=== PATIENT | female | born 1980 | race African-American/Black ===

== ENCOUNTER 2019-09-05 13:07 | Inpatient (IN) | payer MEDICAID ==
[~2019-09-05] VITALS: Ht 160 cm; Wt 77.1 kg
[2019-09-05] MEDS ORDERED: Morphine Sulfate 4mg/ml Inj (IV USE ONLY) IVP ONE (13:30)
--- NOTE | 2019-09-05 13:45 | Emergency Room Report ---
History of Present Illness General Chief Complaint: Abdominal Pain Source: Patient Present Illness HPI 39-year-old female recent embolization August 25 presents with lower abdominal pain sharp in nature intermittent no known aggravating relieving factors severity is severe no nausea no vomiting patient presents for evaluation and admission into the hospital Allergies: Coded Allergies: No Known Allergies (Unverified , 09/05/19) Patient History Past Medical History: see triage record Last Menstrual Period: 08/05/2019 Now: No Reviewed Nursing Documentation: PMH: Agreed; PSxH: Agreed Nursing Documentation-PMH Past Medical History: No Stated History Review of Systems All Other Systems: negative except mentioned in HPI Physical Exam Vital Signs Date Time Temp Pulse Resp B/P (MAP) Pulse Ox O2 Delivery O2 Flow Rate FiO2 09/05/19 13:15 98.2 73 18 113/67 (82) 98 Room Air Sp02 EP Interpretation: reviewed, normal General Appearance: well appearing, no apparent distress, alert Head: normocephalic, atraumatic Eyes: bilateral eye PERRL, bilateral eye EOMI ENT: uvula midline, moist mucus membranes Neck: supple, thyroid normal, supple/symm/no masses Respiratory: lungs clear, no respiratory distress, no retraction, no accessory muscle use Cardiovascular #1: normal peripheral pulses, regular rate, rhythm, no edema, no gallop, no murmur Gastrointestinal: soft, no guarding, no rebound, tenderness - Mild tenderness lower abdominal Musculoskeletal: normal inspection Neurologic: alert, oriented x3 Psychiatric: mood/affect normal Skin: no rash, warm/dry Medical Decision Making Diagnostic Impression: Primary Impression: Intractable abdominal pain Additional Impression: Postoperative pain ER Course 39-year-old female presents with abdominal pain differential diagnosis includes obstruction, postsurgical pain Plan for admission to the hospital under Dr. Velasquez Patient remained stable Laboratory Tests Test 09/05/19 13:47 09/05/19 14:28 White Blood Count 9.7 K/UL (4.8-10.8) Red Blood Count 4.42 M/UL (4.20-5.40) Hemoglobin 11.5 G/DL (12.0-16.0) L Hematocrit 34.5 % (37.0-47.0) L Mean Corpuscular Volume 78 FL (80-99) L Mean Corpuscular Hemoglobin 26.1 PG (27.0-31.0) L Mean Corpuscular Hemoglobin Concent 33.5 G/DL (32.0-36.0) Red Cell Distribution Width 14.0 % (11.6-14.8) Platelet Count 355 K/UL (150-450) Mean Platelet Volume 6.8 FL (6.5-10.1) Neutrophils (%) (Auto) 69.6 % (45.0-75.0) Lymphocytes (%) (Auto) 21.7 % (20.0-45.0) Monocytes (%) (Auto) 6.6 % (1.0-10.0) Eosinophils (%) (Auto) 1.6 % (0.0-3.0) Basophils (%) (Auto) 0.6 % (0.0-2.0) Sodium Level 139 MMOL/L (136-145) Potassium Level 3.9 MMOL/L (3.5-5.1) Chloride Level 102 MMOL/L (98-107) Carbon Dioxide Level 28 MMOL/L (21-32) Anion Gap 9 mmol/L (5-15) Blood Urea Nitrogen 7 mg/dL (7-18) Creatinine 0.8 MG/DL (0.55-1.30) Estimate Glomerular Filtration Rate > 60 mL/min (>60) Glucose Level 92 MG/DL (74-106) Calcium Level 9.5 MG/DL (8.5-10.1) Total Bilirubin 0.3 MG/DL (0.2-1.0) Aspartate Amino Transferase (AST) 14 U/L (15-37) L Alanine Aminotransferase (ALT) 18 U/L (12-78) Alkaline Phosphatase 96 U/L (46-116) Total Protein 8.4 G/DL (6.4-8.2) H Albumin 3.9 G/DL (3.4-5.0) Globulin 4.5 g/dL Albumin/Globulin Ratio 0.9 (1.0-2.7) L Lipase 100 U/L (73-393) Human Chorionic Gonadotropin, Quant 1 mIU/mL (1-6) Urine Color Yellow Urine Appearance Clear Urine pH 5 (4.5-8.0) Urine Specific [facility] 1.015 (1.005-1.035) Urine Protein Negative (NEGATIVE) Urine Glucose (UA) Negative (NEGATIVE) Urine Ketones 1+ (NEGATIVE) H Urine Blood 2+ (NEGATIVE) H Urine Nitrite Negative (NEGATIVE) Urine Bilirubin Negative (NEGATIVE) Urine Urobilinogen Normal MG/DL (0.0-1.0) Urine Leukocyte Esterase 1+ (NEGATIVE) H Urine RBC Pending Urine WBC Pending Urine Squamous Epithelial Cells Pending Urine Bacteria Pending Last Vital Signs Date Time Temp Pulse Resp B/P (MAP) Pulse Ox O2 Delivery O2 Flow Rate FiO2 09/05/19 13:15 98.2 73 18 113/67 (82) 98 Room Air Disposition: ADMITTED INPATIENT Condition: Stable Jh Castellanos MD Sep 05, 2019 13:45
[2019-09-05 14:00] VITALS: BP 112/71
--- NOTE | 2019-09-05 14:19 | NUR ---
ED Nurse Note: Pt walked into ED w/ c/o abdominal pain / since 08/25. Pt is alert and orientedx4, ambulatory. Pt is set up on monitor. Pt has slight nausea. Dr Castellanos has seen patient. Pt mom is at bedside and pt lying in bed.
[2019-09-05 14:22] LABS: ANION GAP 9 mmol/L (5-15); BLOOD UREA NITROGEN 7 mg/dL (7-18); CALCIUM 9.5 MG/DL (8.5-10.1); CARBON DIOXIDE 28 MMOL/L (21-32); CHLORIDE 102 MMOL/L (98-107); CREATININE 0.8 MG/DL (0.55-1.30); POTASSIUM 3.9 MMOL/L (3.5-5.1); SODIUM 139 MMOL/L (136-145)
[2019-09-05 14:26] LABS: ALANINE AMINOTRANSFERASE 18 U/L (12-78); ALBUMIN 3.9 G/DL (3.4-5.0); ALBUMIN/GLOBULIN RATIO 0.9 (1.0-2.7); ALKALINE PHOSPHATASE 96 U/L (46-116); ASPARTATE AMINO TRANSFERASE 14 U/L (15-37); BILIRUBIN,TOTAL 0.3 MG/DL (0.2-1.0)
--- NOTE | 2019-09-05 14:29 | NUR ---
ED Nurse Note: Dr Castellanos notified that pt IV has been attempted by 4 nurses and unable to get IV. DR Castellanos will attempt EJ.
[2019-09-05 14:41] LABS: BASOPHILS % (AUTO) 0.6 % (0.0-2.0); EOSINOPHILS % (AUTO) 1.6 % (0.0-3.0); HEMATOCRIT 34.5 % (37.0-47.0); HEMOGLOBIN 11.5 G/DL (12.0-16.0); LYMPHOCYTES % (AUTO) 21.7 % (20.0-45.0); MEAN CORPUSCULAR VOLUME 78 FL (80-99); MONOCYTES % (AUTO) 6.6 % (1.0-10.0); NEUTROPHILS % (AUTO) 69.6 % (45.0-75.0); PLATELET COUNT 355 K/UL (150-450); RED BLOOD COUNT 4.42 M/UL (4.20-5.40); WHITE BLOOD COUNT 9.7 K/UL (4.8-10.8)
[2019-09-05 14:52] LABS: APPEARANCE,URINE CLEAR; BILIRUBIN, URINE NEGATIVE (NEGATIVE); GLUCOSE, URINE (UA) NEGATIVE (NEGATIVE); KETONES,URINE 1+ (NEGATIVE); LEUKOCYTE ESTERASE ,URINE 1+ (NEGATIVE); NITRITE,URINE NEGATIVE (NEGATIVE); PH,URINE 5 (4.5-8.0); PROTEIN,URINE NEGATIVE (NEGATIVE); UROBILINOGEN,URINE NORMAL MG/DL (0.0-1.0)
[2019-09-05] MEDS ORDERED: TRAMADOL HCL50 MG ORAL (14:52)
[2019-09-05] MEDS ORDERED: NITROFURANTOIN100 M2 ORAL (14:52)
[2019-09-05] MEDS ORDERED: MOVANTIK25 MG PO (14:52)
[2019-09-05] MEDS ORDERED: ZOFRAN4 M3 ORAL (14:52)
[2019-09-05] MEDS ORDERED: OXYCODONE-ACET1 EAC5 ORAL (14:52)
[2019-09-05 14:53] LABS: COLOR,URINE YELLOW
[2019-09-05 15:30] VITALS: BP 130/108
--- NOTE | 2019-09-05 15:30 | NUR ---
NURSE NOTES: ADMITTED A 39YR OLD FEMALE WITH DX OF INTRACTABLE ABDOMINAL PAIN. AWAKE/ALERT. ADM CARE DONE SEE ADM ASSESSMENT.
--- NOTE | 2019-09-05 15:35 | NUR ---
ED Nurse Note: Report given to Liz LI.
--- NOTE | 2019-09-05 15:40 | NUR ---
ED Nurse Note: Pt taken to [facility] via [facility]. Pt took all belongings. Pt is alert and orientedx4, amb.
--- NOTE | 2019-09-05 16:47 | General Surgery Progress Note ---
General Surgery-Progress Note Subjective Day of Surgery: august 25 Reason for Consult post procedure pain, uncontrolled Procedure Performed uterine artery embolization Symptoms: pain same, tolerating diet, BM Objective Last 24 Hour Vital Signs Date Time Temp Pulse Resp B/P (MAP) Pulse Ox O2 Delivery O2 Flow Rate FiO2 09/05/19 15:40 98.2 86 18 118/76 97 Room Air 09/05/19 15:40 98.2 09/05/19 15:30 Room Air 09/05/19 14:00 98.2 82 18 112/71 99 Room Air 09/05/19 14:00 78 18 Room Air 99 09/05/19 13:15 98.2 73 18 113/67 (82) 98 Room Air Dressing: dry Wound: clean, dry, intact Drains: none Cardiovascular: RSR Respiratory: clear Abdomen: soft, flat, scaphoid, tenderness, decreased bowel sounds Extremities: no edema, no tenderness, no cyanosis Laboratory Tests Test 09/05/19 13:47 09/05/19 14:28 White Blood Count 9.7 K/UL (4.8-10.8) Red Blood Count 4.42 M/UL (4.20-5.40) Hemoglobin 11.5 G/DL (12.0-16.0) L Hematocrit 34.5 % (37.0-47.0) L Mean Corpuscular Volume 78 FL (80-99) L Mean Corpuscular Hemoglobin 26.1 PG (27.0-31.0) L Mean Corpuscular Hemoglobin Concent 33.5 G/DL (32.0-36.0) Red Cell Distribution Width 14.0 % (11.6-14.8) Platelet Count 355 K/UL (150-450) Mean Platelet Volume 6.8 FL (6.5-10.1) Neutrophils (%) (Auto) 69.6 % (45.0-75.0) Lymphocytes (%) (Auto) 21.7 % (20.0-45.0) Monocytes (%) (Auto) 6.6 % (1.0-10.0) Eosinophils (%) (Auto) 1.6 % (0.0-3.0) Basophils (%) (Auto) 0.6 % (0.0-2.0) Sodium Level 139 MMOL/L (136-145) Potassium Level 3.9 MMOL/L (3.5-5.1) Chloride Level 102 MMOL/L (98-107) Carbon Dioxide Level 28 MMOL/L (21-32) Anion Gap 9 mmol/L (5-15) Blood Urea Nitrogen 7 mg/dL (7-18) Creatinine 0.8 MG/DL (0.55-1.30) Estimat Glomerular Filtration Rate > 60 mL/min (>60) Glucose Level 92 MG/DL (74-106) Calcium Level 9.5 MG/DL (8.5-10.1) Total Bilirubin 0.3 MG/DL (0.2-1.0) Aspartate Amino Transf (AST/SGOT) 14 U/L (15-37) L Alanine Aminotransferase (ALT/SGPT) 18 U/L (12-78) Alkaline Phosphatase 96 U/L (46-116) Total Protein 8.4 G/DL (6.4-8.2) H Albumin 3.9 G/DL (3.4-5.0) Globulin 4.5 g/dL Albumin/Globulin Ratio 0.9 (1.0-2.7) L Lipase 100 U/L (73-393) Human Chorionic Gonadotropin, Quant 1 mIU/mL (1-6) Urine Color Yellow Urine Appearance Clear Urine pH 5 (4.5-8.0) Urine Specific [place] 1.015 (1.005-1.035) Urine Protein Negative (NEGATIVE) Urine Glucose (UA) Negative (NEGATIVE) Urine Ketones 1+ (NEGATIVE) H Urine Blood 2+ (NEGATIVE) H Urine Nitrite Negative (NEGATIVE) Urine Bilirubin Negative (NEGATIVE) Urine Urobilinogen Normal MG/DL (0.0-1.0) Urine Leukocyte Esterase 1+ (NEGATIVE) H Urine RBC 2-4 /HPF (0 - 2) H Urine WBC 10-15 /HPF (0 - 2) H Urine Squamous Epithelial Cells Moderate /LPF (NONE/OCC) H Urine Bacteria Moderate /HPF (NONE) H Additional Comments seen yesterday in [facility] ED, normal CT scan abdomen and pelvis Assessment Additional Comments in [facility] KUB, such stool in colon, otherwise normal Plan Additional Comments pain control, IM and GI consult Logan Velasquez MD Sep 05, 2019 16:47
[2019-09-05] MEDS ORDERED: HYDROmorphone 1mg/ml Carpuject IVP PRN (17:00)
[2019-09-05] MEDS ORDERED: HYDROcodone/Acetamin 5/325 tab ORAL PRN (17:00)
[2019-09-05] MEDS ORDERED: Miralax 17gm pkt ORAL PRN (17:00)
[2019-09-05] MEDS ORDERED: Milk of Magnesia 30ml Ud ORAL PRN (17:00)
--- NOTE | 2019-09-05 17:00 | Diagnostic Imaging Report ---
Indication: Abdominal pain Technique: Supine view of the abdomen Comparison: none Findings: Bowel gas pattern is unremarkable. No unusual masses or calcifications. There is a well-circumscribed lucency in the pelvis which is unusually uniform in shape, could indicate a lucent foreign body Impression: No acute process Lucency in the pelvis raises possibility of foreign body. Dr. Nicholson notified
[2019-09-05] MEDS: Docusate 250mg cap ORAL SCH (18:26)
[2019-09-05] MEDS: Dextrose 5%/Lactated Ringer's 1,000 ML IV SCH (18:47)
--- NOTE | 2019-09-05 19:00 | NUR ---
NURSE NOTES: AWAKE/ALERT. IN NO DISTRESS.
[2019-09-05] MEDS: Lactulose 20gm/30ml UDC ORAL SCH (19:07)
--- NOTE | 2019-09-05 19:50 | NUR ---
HAND-OFF: Report given to CAROLE LI.
[2019-09-05] MEDS ORDERED: Relistor 12mg/0.6ml Vial SUBQ ONE (20:00)
--- NOTE | 2019-09-05 20:17 | NUR ---
NURSES NOTE: Pt in bed, A/OX4, no outward s/s of distress noted. Breathing pattern is even and unlabored on RA. Iv L ac intact, flushing without incident. All due medications will be given. Bed at lowest level, call light within reach. Pt will continue to be monitored.
[2019-09-05] MEDS: ceFAZolin sod 1 GM in D5W 55 ML IVPB SCH (22:49)
[2019-09-06] MEDS: Dextrose 5%/Lactated Ringer's 1,000 ML IV SCH ×3 (05:35→17:48)
[2019-09-06] MEDS: ceFAZolin sod 1 GM in D5W 55 ML IVPB SCH ×3 (05:35→22:07)
[2019-09-06 05:56] LABS: BASOPHILS % (AUTO) 1.3 % (0.0-2.0); EOSINOPHILS % (AUTO) 1.8 % (0.0-3.0); HEMATOCRIT 30.7 % (37.0-47.0); HEMOGLOBIN 9.9 G/DL (12.0-16.0); LYMPHOCYTES % (AUTO) 21.6 % (20.0-45.0); MEAN CORPUSCULAR VOLUME 79 FL (80-99); MONOCYTES % (AUTO) 8.6 % (1.0-10.0); NEUTROPHILS % (AUTO) 66.7 % (45.0-75.0); PLATELET COUNT 303 K/UL (150-450); RED BLOOD COUNT 3.89 M/UL (4.20-5.40); RED CELL DISTRIBUTION WIDTH 13.7 % (11.6-14.8); WHITE BLOOD COUNT 8.1 K/UL (4.8-10.8)
--- NOTE | 2019-09-06 07:22 | NUR ---
PENNYND OFF: Report given to JEN Hill. Patient in stable condition. Addendum: 09/06/19 at 0724 by Susan Mondragon RN HAND- OFF:
--- NOTE | 2019-09-06 08:05 | NUR ---
NURSE NOTES: AWAKE/ALERT. NO C/O PAIN. IN NO DISTRESS.
[2019-09-06] MEDS: Lactulose 20gm/30ml UDC ORAL SCH ×3 (09:21→17:50)
[2019-09-06] MEDS: Docusate 250mg cap ORAL SCH ×2 (09:21→17:50)
--- NOTE | 2019-09-06 09:51 | History & Physical ---
History and Physical History & Physicial DICT # [id number] Samir Escalante MD Sep 06, 2019 09:51
[2019-09-06] MEDS ORDERED: Iron Sucrose 100 MG in NS 55 ML IV SCH (10:00)
--- NOTE | 2019-09-06 10:23 | General Progress Note ---
Assessment/Plan Problem List: (1) Intractable abdominal pain ICD Codes: R10.9 - Unspecified abdominal pain SNOMED: 89885231 (2) Postoperative pain ICD Codes: G89.18 - Other acute postprocedural pain SNOMED: 534601367 (3) Constipation ICD Codes: K59.00 - Constipation, unspecified SNOMED: 80793351 Assessment/Plan: bowel regimen -colace -miralax -lactulose -enema -and one dose of relistor one more enema for today pain management fu labs Subjective ROS Limited/Unobtainable: Yes Allergies: Coded Allergies: No Known Allergies (Unverified , 09/05/19) Objective Last 24 Hour Vital Signs Date Time Temp Pulse Resp B/P (MAP) Pulse Ox O2 Delivery O2 Flow Rate FiO2 09/05/19 21:00 Room Air 09/05/19 15:40 98.2 86 18 118/76 97 Room Air 09/05/19 15:40 98.2 09/05/19 15:30 99.0 100 20 130/108 (115) 100 09/05/19 15:30 Room Air 09/05/19 14:00 98.2 82 18 112/71 99 Room Air 09/05/19 14:00 78 18 Room Air 99 09/05/19 13:15 98.2 73 18 113/67 (82) 98 Room Air Intake and Output 09/05/19 09/06/19 19:00 07:00 Intake Total 450 ml 460 ml Balance 450 ml 460 ml Intake Oral 450 ml 360 ml IV Total 100 ml # Voids 1 2 Laboratory Tests 09/05/19 13:47: White Blood Count 9.7, Red Blood Count 4.42, Hemoglobin 11.5L, Hematocrit 34.5L , Mean Corpuscular Volume 78L, Mean Corpuscular Hemoglobin 26.1L, Mean Corpuscular Hemoglobin Concent 33.5, Red Cell Distribution Width 14.0, Platelet Count 355, Mean Platelet Volume 6.8, Neutrophils (%) (Auto) 69.6, Lymphocytes (% ) (Auto) 21.7, Monocytes (%) (Auto) 6.6, Eosinophils (%) (Auto) 1.6, Basophils ( %) (Auto) 0.6, Sodium Level 139, Potassium Level 3.9, Chloride Level 102, Carbon Dioxide Level 28, Anion Gap 9, Blood Urea Nitrogen 7, Creatinine 0.8, Estimat Glomerular Filtration Rate > 60, Glucose Level 92, Calcium Level 9.5, Total Bilirubin 0.3, Aspartate Amino Transf (AST/SGOT) 14L, Alanine Aminotransferase (ALT/SGPT) 18, Alkaline Phosphatase 96, Total Protein 8.4H, Albumin 3.9, Globulin 4.5, Albumin/Globulin Ratio 0.9L, Lipase 100, Human Chorionic Gonadotropin, Quant 1 09/05/19 14:28: Urine Color Yellow, Urine Appearance Clear, Urine pH 5, Urine Specific [place] 1.015, Urine Protein Negative, Urine Glucose (UA) Negative, Urine Ketones 1+H, Urine Blood 2+H, Urine Nitrite Negative, Urine Bilirubin Negative, Urine Urobilinogen Normal, Urine Leukocyte Esterase 1+H, Urine RBC 2-4H, Urine WBC 10- 15H, Urine Squamous Epithelial Cells ModerateH, Urine Bacteria ModerateH 09/06/19 05:10: White Blood Count 8.1, Red Blood Count 3.89L, Hemoglobin 9.9L, Hematocrit 30.7L , Mean Corpuscular Volume 79L, Mean Corpuscular Hemoglobin 25.4L, Mean Corpuscular Hemoglobin Concent 32.2, Red Cell Distribution Width 13.7, Platelet Count 303, Mean Platelet Volume 7.0, Neutrophils (%) (Auto) 66.7, Lymphocytes (% ) (Auto) 21.6, Monocytes (%) (Auto) 8.6, Eosinophils (%) (Auto) 1.8, Basophils ( %) (Auto) 1.3 Height (Feet): 5 Height (Inches): 3.00 Weight (Pounds): 170 General Appearance: alert EENT: normal ENT inspection Neck: supple Cardiovascular: normal rate Respiratory/Chest: decreased breath sounds Abdomen: normal bowel sounds, hypoactive bowel sounds, tender Extremities: non-tender Alexander Willett MD Sep 06, 2019 10:23
--- NOTE | 2019-09-06 10:45 | NUR ---
NURSE NOTES: OFFERED TWE BUT REFUSED. STATES JUST WENT TO THE BATHROOM AND HAD BM.
--- NOTE | 2019-09-06 11:41 | NUR ---
*-* INSURANCE *-* ALL AVAILABLE CLINICALS HAVE BEEN FAXED TO: [employer]#[id number] CM: ALBER #[phone] EXT [phone] FAX# [phone] REVIEWS/CLINICALS
[2019-09-06 12:00] VITALS: BP 113/66
[2019-09-06] MEDS ORDERED: traMADol 50mg tab ORAL PRN (12:15)
--- NOTE | 2019-09-06 12:58 | Diagnostic Imaging Report ---
Indication: Leg pain Technique: Grayscale and duplex images of the bilateral lower extremity veins Comparison: Findings: Bilaterally, grayscale and duplex images demonstrate no evidence of intraluminal thrombus. Normal phasic Doppler waveforms, demonstrating normal augmentation response and no evidence of valvular insufficiency. Greater saphenous vein(s) and tibial veins are patent. Normal compressibility. Note, however, that the right groin is bandage and therefore the common femoral vein cannot be visualized Impression: Limited exam, as described, with nonvisualization of the right common femoral vein. Otherwise negative for evidence of lower extremity deep venous thrombosis bilaterally
--- NOTE | 2019-09-06 13:52 | Diagnostic Imaging Report ---
Indication: Upper extremity arm pain Technique: Grayscale and duplex images of the bilateral upper extremity veins Comparison: Findings: Bilaterally, grayscale and duplex images demonstrate no evidence of intraluminal thrombus. Normal phasic Doppler waveforms, no evidence of valvular insufficiency. Bilateral internal jugular and subclavian veins are patent. Normal compressibility. Impression: Negative for evidence of upper extremity deep venous thrombosis bilaterally
[2019-09-06] MEDS: Relistor 12mg/0.6ml Vial SUBQ SCH (14:00)
--- NOTE | 2019-09-06 14:40 | General Surgery Progress Note ---
General Surgery-Progress Note Subjective Procedure Performed uterine artery embolization Symptoms: tolerating diet, voiding well, passing flatus, BM, pain decreased Objective Last 24 Hour Vital Signs Date Time Temp Pulse Resp B/P (MAP) Pulse Ox O2 Delivery O2 Flow Rate FiO2 09/06/19 12:00 98.4 63 20 113/66 (82) 100 09/06/19 09:00 Room Air 09/05/19 21:00 Room Air 09/05/19 15:40 98.2 86 18 118/76 97 Room Air 09/05/19 15:40 98.2 09/05/19 15:30 99.0 100 20 130/108 (115) 100 09/05/19 15:30 Room Air I&O Intake and Output 09/05/19 09/06/19 19:00 07:00 Intake Total 450 ml 460 ml Balance 450 ml 460 ml Intake Oral 450 ml 360 ml IV Total 100 ml # Voids 1 2 Dressing: dry Wound: clean Drains: none Cardiovascular: RSR Respiratory: clear Abdomen: soft, flat, scaphoid, tenderness, present bowel sounds Extremities: no edema, no tenderness, no cyanosis Laboratory Tests Test 09/06/19 05:10 White Blood Count 8.1 K/UL (4.8-10.8) Red Blood Count 3.89 M/UL (4.20-5.40) L Hemoglobin 9.9 G/DL (12.0-16.0) L Hematocrit 30.7 % (37.0-47.0) L Mean Corpuscular Volume 79 FL (80-99) L Mean Corpuscular Hemoglobin 25.4 PG (27.0-31.0) L Mean Corpuscular Hemoglobin Concent 32.2 G/DL (32.0-36.0) Red Cell Distribution Width 13.7 % (11.6-14.8) Platelet Count 303 K/UL (150-450) Mean Platelet Volume 7.0 FL (6.5-10.1) Neutrophils (%) (Auto) 66.7 % (45.0-75.0) Lymphocytes (%) (Auto) 21.6 % (20.0-45.0) Monocytes (%) (Auto) 8.6 % (1.0-10.0) Eosinophils (%) (Auto) 1.8 % (0.0-3.0) Basophils (%) (Auto) 1.3 % (0.0-2.0) Additional Comments doppler of legs negative Assessment Additional Comments minimal pain control needed. Plan Additional Comments attempt oral pain medication. possible am discharge Logan Velasquez MD Sep 06, 2019 14:40
--- NOTE | 2019-09-06 14:41 | NUR ---
CASE MANAGEMENT: INITIAL REVIEW 39YR OLD FROM HOME CC: ABD PAIN HX: S/P UTERINE ARTERY EMBOLIZATION SI:INTRACTABLE ABD PAIN . POSTOPERATIVE PAIN 98.2 73 18 113/67 98% ON RA IS:IV NS BOLUS X1 IV ZOFRAN X1 IV PEPCID X1 IV MORPHINE SULFATE X1 ABD [id number] in the pelvis raises possibility of foreign body VENOUS DUPL ILAN LEG - Limited exam, as described, with nonvisualization of the right common femoral vein. Otherwise negative for evidence of lower extremity deep venous thrombosis bilaterally VENOUS DUPL UPPER EXT ILAN- NEGATIVE \: 3E MED SURG UNIT DCP: HOME WHEN STABLE CASE MANAGEMENT: REVIEW 09/06/19 SI:INTRACTABLE ABD PAIN . POSTOPERATIVE PAIN 98.4 63 20 113/66 100% ON RA H/H 9.9/30.7 IS:IV D5/LR @100ML/HR IV CEFAZOLIN TID IV VENOFER QHS X5 BAGS MACROBID PO BID KETOCONAZOLE TP QD LACTULOSE PO TID RELISTOR SQ X1 \: 3E MED SURG UNIT DCP: HOME WHEN STABLE PLAN: BOWEL REGIMEN PAIN MANAGEMENT TOLERATING DIET VOID WELL PASS FLATUS PAIN DECREASE
[2019-09-06] MEDS ORDERED: Tubing IV Secondary IV ONE (15:09)
[2019-09-06 16:00] VITALS: BP 120/69
--- NOTE | 2019-09-06 19:00 | NUR ---
NURSE NOTES: AWAKE/ALERT. IN DISTRESS. NO PAIN.
--- NOTE | 2019-09-06 19:38 | NUR ---
NURSES NOTE: Met pt in bed, A/OX4, able to relay needs. Denies pain currently. No outward s/s of distress noted. Breathing is even and unlabored on RA. L AC IV intact, infusing IVF as ordered. All due meds will be given. BM X3 today. Bed at lowest level. Call light within reach. Pt will continue to be monitored.
--- NOTE | 2019-09-06 19:54 | NUR ---
HAND-OFF: Report given to Josue DORMAN RN.
[2019-09-06 20:00] VITALS: BP 109/61
--- NOTE | 2019-09-06 20:15 | History and Physical Report ---
DATE OF ADMISSION: 09/05/2019 CHIEF COMPLAINT: Abdominal pain. HISTORY OF PRESENT ILLNESS: The patient is a 39-year-old female, G 1, P 1, with a history of uterine fibroids, status post uterine fibroid embolization by Dr. Velasquez at [facility] on August 25 with postoperative UTI and sepsis per the patient, now presenting for evaluation of abdominal pain. She has left lower quadrant abdominal pain, which she describes as her postoperative pain, but was not controlled on the oral regimen at home. She was seen and evaluated by Dr. Velasquez. KUB in the ER showed stool in the colon, but was otherwise unremarkable. She was seen at [facility] one day prior and had a normal CT scan of the abdomen and pelvis. Her only complaint is a left lower quadrant pain. She cannot identify any alleviating or aggravating factors. No nausea, vomiting, diarrhea, or constipation. She did have dysuria, which improved with antibiotics. No urgency, frequency, or hesitancy. No hemoptysis, melena, bright red blood per rectum or hematuria. PAST MEDICAL HISTORY: Uterine fibroids. PAST SURGICAL HISTORY: 1. . 2. Uterine fibroid embolization, 08/25/2019. ALLERGIES: No known drug allergies. MEDICATIONS: Prior to admission medications, Movantik 25 mg p.o. daily, nitrofurantoin 100 mg p.o. b.i.d., Zofran 4 mg p.o. q.6 h. p.r.n., oxycodone/acetaminophen one tablet p.o. q.4 h. p.r.n., and tramadol 50 mg p.o. q.6 h. p.r.n. 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 She has one child. No tobacco, alcohol, or drug use. FAMILY HISTORY: Noncontributory. REVIEW OF SYSTEMS: Negative other than history of present illness. PHYSICAL EXAMINATION: VITAL SIGNS: Temperature 98.2, pulse 86, blood pressure 118/76, saturating 97% in room air. GENERAL: She is a well-developed and well-nourished female, in no acute distress. Awake, alert, and oriented x3. HEENT: Normocephalic and atraumatic. Oropharynx is clear with moist mucous membranes. NECK: Supple without lymphadenopathy or JVD. CHEST: Clear to auscultation bilaterally without wheezing, rales, or rhonchi. HEART: Regular rate and rhythm. No murmurs, rubs, or gallops. ABDOMEN: Soft, nontender, and nondistended. EXTREMITIES: No cyanosis, clubbing, or edema. ANCILLARY DATA: White count 8.1, hemoglobin 9.9, and platelet count 303. Sodium 139, potassium 3.9, chloride 102, bicarbonate 28, BUN 7, creatinine 0.8, glucose 92, calcium 9.5. Total bilirubin 0.3, AST 14, ALT 18, alkaline phosphatase 96, total protein 8.4, albumin 3.9, globulin 4.5, lipase 100. Beta hCG negative. Urinalysis, 1+ ketones, 2+ blood, negative nitrites, negative urobilinogen, 1+ leukocyte esterase, 10 to 15 white blood cells, moderate bacteria, and moderate squames. Urine culture, no growth. KUB from 09/05/2019 shows no active process. Per report [facility] CT scan one day earlier was unremarkable. ASSESSMENT: The patient is a 39-year-old female with a history of uterine fibroids, status post uterine fibroid embolization 08/25/[address] Velasquez, now presenting with intractable postoperative pain. PROBLEM LIST: 1. Postop pain. 2. Uterine fibroids, status post uterine fibroid embolization, 08/25/[address] Velasquez at [facility]. 3. Postoperative urinary tract infection. 4. Constipation. 5. Anemia. TREATMENT PLAN: 1. Pain control/supportive care. 2. We will attempt to transition to p.o. pain regimen. 3. Incentive spirometry. 4. Bowel regimen. 5. Maintenance IV fluids. 6. Clear liquid diet, advance per Dr. Velasquez. 7. Follow up Dr. Velasquez' recommendations. 8. GI evaluation is pending as well. 9. The patient is Full Code. Samir Escalante M.D. DR: JUDE JOB#: [id number] CC:
[2019-09-07] VITALS: BP 103/42
[2019-09-07 04:00] VITALS: BP 107/68
[2019-09-07] MEDS: Dextrose 5%/Lactated Ringer's 1,000 ML IV SCH ×2 (05:05→09:39)
[2019-09-07] MEDS: ceFAZolin sod 1 GM in D5W 55 ML IVPB SCH ×2 (05:05→14:00)
--- NOTE | 2019-09-07 07:11 | NUR ---
HAND OFF: Report given to JEN Alanis/ JEN Roth. Pt in stable condition.
--- NOTE | 2019-09-07 07:30 | NUR ---
NURSE NOTES: Received report from Susan LI. Patient is awake and oriented, no acute distress noted, reporting no pain at this time. IVF running per order through [facility] IV, IV intact, patent. Patient is having breakfast and tolerating well. Patient stated she is ready to be discharge today, will follow up with MD. Side rails upx2, bed low and locked, call light within reach.
[2019-09-07 08:00] VITALS: BP 109/71
[2019-09-07] MEDS ORDERED: Iron Sucrose 100 MG in NS 55 ML IVPB ONE (08:15)
--- NOTE | 2019-09-07 08:15 | NUR ---
NURSE NOTES: Received call from Dr. Velasquez. gave order for one time dose of Venofer and STAT labs. Orders read back and entered. Called lab and informed of STAT lab orders.
[2019-09-07 08:50] LABS: BASOPHILS % (AUTO) 0.6 % (0.0-2.0); EOSINOPHILS % (AUTO) 2.1 % (0.0-3.0); HEMATOCRIT 31.5 % (37.0-47.0); HEMOGLOBIN 10.3 G/DL (12.0-16.0); LYMPHOCYTES % (AUTO) 19.8 % (20.0-45.0); MEAN CORPUSCULAR VOLUME 78 FL (80-99); MONOCYTES % (AUTO) 5.9 % (1.0-10.0); NEUTROPHILS % (AUTO) 71.6 % (45.0-75.0); PLATELET COUNT 301 K/UL (150-450); RED BLOOD COUNT 4.02 M/UL (4.20-5.40); RED CELL DISTRIBUTION WIDTH 13.8 % (11.6-14.8); WHITE BLOOD COUNT 8.3 K/UL (4.8-10.8)
[2019-09-07 08:52] LABS: ANION GAP 10 mmol/L (5-15); BLOOD UREA NITROGEN 6 mg/dL (7-18); CALCIUM 9.1 MG/DL (8.5-10.1); CARBON DIOXIDE 29 MMOL/L (21-32); CHLORIDE 105 MMOL/L (98-107); CREATININE 0.7 MG/DL (0.55-1.30); POTASSIUM 3.5 MMOL/L (3.5-5.1); SODIUM 144 MMOL/L (136-145)
[2019-09-07 09:00] LABS: ALANINE AMINOTRANSFERASE 15 U/L (12-78); ALBUMIN 3.1 G/DL (3.4-5.0); ALBUMIN/GLOBULIN RATIO 0.8 (1.0-2.7); ALKALINE PHOSPHATASE 81 U/L (46-116); ASPARTATE AMINO TRANSFERASE 12 U/L (15-37); BILIRUBIN,TOTAL 0.2 MG/DL (0.2-1.0)
[2019-09-07] MEDS: Docusate 250mg cap ORAL SCH (09:00)
[2019-09-07] MEDS ORDERED: Iron Sucrose 100 MG in NS 55 ML IV SCH (09:00)
[2019-09-07] MEDS: Lactulose 20gm/30ml UDC ORAL SCH ×2 (09:00→13:00)
--- NOTE | 2019-09-07 11:59 | General Progress Note ---
Assessment/Plan Problem List: (1) Intractable abdominal pain ICD Codes: R10.9 - Unspecified abdominal pain SNOMED: 91421793 (2) Postoperative pain ICD Codes: G89.18 - Other acute postprocedural pain SNOMED: 904090634 (3) Constipation ICD Codes: K59.00 - Constipation, unspecified SNOMED: 29233723 Assessment/Plan: bowel regimen -colace -miralax -lactulose -enemahad multiple bm abd pain much better wants to go home Subjective ROS Limited/Unobtainable: Yes Allergies: Coded Allergies: No Known Allergies (Unverified , 09/05/19) Subjective had multiple bm Objective Last 24 Hour Vital Signs Date Time Temp Pulse Resp B/P (MAP) Pulse Ox O2 Delivery O2 Flow Rate FiO2 09/07/19 08:00 98.9 79 18 109/71 (84) 98 09/07/19 04:00 98.8 71 20 107/68 (81) 98 71 09/07/19 00:00 98.7 63 21 103/42 (62) 98 63 09/06/19 21:00 Room Air 09/06/19 20:00 100.1 81 21 109/61 (77) 98 09/06/19 16:00 98.3 71 18 120/69 (86) 09/06/19 12:00 98.4 63 20 113/66 (82) 100 Intake and Output 09/06/19 09/07/19 19:00 07:00 Intake Total 1865 ml 810 ml Output Total 2300 ml Balance -435 ml 810 ml Intake Oral 850 ml IV Total 1015 ml 810 ml Output Urine Total 2300 ml # Voids 5 # Bowel Movements 2 4 Laboratory Tests 09/07/19 08:30: White Blood Count 8.3, Red Blood Count 4.02L, Hemoglobin 10.3L, Hematocrit 31.5L , Mean Corpuscular Volume 78L, Mean Corpuscular Hemoglobin 25.7L, Mean Corpuscular Hemoglobin Concent 32.7, Red Cell Distribution Width 13.8, Platelet Count 301, Mean Platelet Volume 6.9, Neutrophils (%) (Auto) 71.6, Lymphocytes (% ) (Auto) 19.8L, Monocytes (%) (Auto) 5.9, Eosinophils (%) (Auto) 2.1, Basophils (%) (Auto) 0.6, Sodium Level 144, Potassium Level 3.5, Chloride Level 105, Carbon Dioxide Level 29, Anion Gap 10, Blood Urea Nitrogen 6L, Creatinine 0.7, Estimat Glomerular Filtration Rate > 60, Glucose Level 131H, Calcium Level 9.1, Total Bilirubin 0.2, Aspartate Amino Transf (AST/SGOT) 12L, Alanine Aminotransferase (ALT/SGPT) 15, Alkaline Phosphatase 81, Total Protein 7.0, Albumin 3.1L, Globulin 3.9, Albumin/Globulin Ratio 0.8L Height (Feet): 5 Height (Inches): 3.00 Weight (Pounds): 170 General Appearance: alert EENT: normal ENT inspection Neck: supple Cardiovascular: normal rate Respiratory/Chest: decreased breath sounds Abdomen: normal bowel sounds, non tender, soft Extremities: non-tender Alexander Willett MD Sep 07, 2019 11:59
[2019-09-07 12:00] VITALS: BP 116/59
--- NOTE | 2019-09-07 13:03 | Pulmonology Progress Note ---
Assessment/Plan Problems: (1) Postoperative pain (2) Intractable abdominal pain (3) Constipation Assessment/Plan D/C home Discharge summary dictated Med list reviewed Pain control/supportive care Bowel regimen F/U with Dr. Velasquez wednesday Subjective Allergies: Coded Allergies: No Known Allergies (Unverified , 09/05/19) Subjective AFVSS on RA No FC Daysi PO, + BM, no abd pain, no NVDC No CP or SOB Objective Last 24 Hour Vital Signs Date Time Temp Pulse Resp B/P (MAP) Pulse Ox O2 Delivery O2 Flow Rate FiO2 09/07/19 08:00 98.9 79 18 109/71 (84) 98 09/07/19 04:00 98.8 71 20 107/68 (81) 98 71 09/07/19 00:00 98.7 63 21 103/42 (62) 98 63 09/06/19 21:00 Room Air 09/06/19 20:00 100.1 81 21 109/61 (77) 98 09/06/19 16:00 98.3 71 18 120/69 (86) Intake and Output 09/06/19 09/07/19 19:00 07:00 Intake Total 1865 ml 810 ml Output Total 2300 ml Balance -435 ml 810 ml Intake Oral 850 ml IV Total 1015 ml 810 ml Output Urine Total 2300 ml # Voids 5 # Bowel Movements 2 4 General Appearance: WD/WN, no acute distress HEENT: normocephalic, atraumatic, anicteric, mucous membranes moist Respiratory/Chest: chest wall non-tender, lungs clear, normal breath sounds, no respiratory distress, no accessory muscle use Cardiovascular: normal peripheral pulses, normal rate, regular rhythm Abdomen: normal bowel sounds, soft, non tender, no organomegaly, non distended , no mass Extremities: no cyanosis, no clubbing, no edema Microbiology Date/Time Source Procedure Growth Status 09/05/19 14:28 Urine,Clean Catch Urine Culture - Final NO GROWTH AFTER 48 HOURS Complete Laboratory Tests 09/07/19 08:30: White Blood Count 8.3, Red Blood Count 4.02L, Hemoglobin 10.3L, Hematocrit 31.5L , Mean Corpuscular Volume 78L, Mean Corpuscular Hemoglobin 25.7L, Mean Corpuscular Hemoglobin Concent 32.7, Red Cell Distribution Width 13.8, Platelet Count 301, Mean Platelet Volume 6.9, Neutrophils (%) (Auto) 71.6, Lymphocytes (% ) (Auto) 19.8L, Monocytes (%) (Auto) 5.9, Eosinophils (%) (Auto) 2.1, Basophils (%) (Auto) 0.6, Sodium Level 144, Potassium Level 3.5, Chloride Level 105, Carbon Dioxide Level 29, Anion Gap 10, Blood Urea Nitrogen 6L, Creatinine 0.7, Estimat Glomerular Filtration Rate > 60, Glucose Level 131H, Calcium Level 9.1, Total Bilirubin 0.2, Aspartate Amino Transf (AST/SGOT) 12L, Alanine Aminotransferase (ALT/SGPT) 15, Alkaline Phosphatase 81, Total Protein 7.0, Albumin 3.1L, Globulin 3.9, Albumin/Globulin Ratio 0.8L Current Medications Medications (Trade) Dose Ordered Sig/Shanel Route PRN Reason Start Time Stop Time Status Last Admin Dose Admin Acetaminophen (Tylenol) 650 mg Q4H PRN ORAL Mild Pain/Temp > 100.5 09/05/19 17:00 10/05/19 16:59 Acetaminophen/ Hydrocodone Bitart ([place] 5/325) 1 tab Q4H PRN ORAL Moderate Pain (Pain Scale 4-6) 09/05/19 17:00 09/12/19 16:59 Cefazolin Sodium 1 gm/Dextrose 55 ml @ 110 mls/hr Q8HR IVPB 09/05/19 22:00 09/12/19 21:59 09/07/19 05:05 Dextrose/Lactated Ringer's 1,000 ml @ 100 mls/hr Q10H IV 09/05/19 17:30 10/05/19 17:29 09/07/19 09:39 Docusate Sodium (Colace) 250 mg BID ORAL 09/05/19 18:00 10/05/19 17:59 09/06/19 17:50 Hydromorphone HCl (Dilaudid) 1 mg Q4H PRN IVP Severe Pain (Pain Scale 7-10) 09/05/19 17:00 09/12/19 16:59 Iron Sucrose 100 mg/Sodium Chloride 60 ml @ 240 mls/hr BEDTIME IV 09/07/19 09:00 09/10/19 21:14 09/07/19 09:08 Ketoconazole (Nizoral 2% Cream) 1 applic DAILY TOPIC 09/05/19 18:30 10/05/19 18:29 09/07/19 09:09 Lactulose (Cephulac) 20 gm THREE TIMES A DAY ORAL 09/05/19 18:45 10/05/19 18:44 09/06/19 17:50 Methylnaltrexone [place] (Relistor) 12 mg ONCE SUBQ 09/06/19 14:00 09/07/19 23:59 Nitrofurantoin (Macrobid) 100 mg BID ORAL 09/05/19 18:00 09/09/19 17:59 09/07/19 09:09 Ondansetron HCl (Zofran) 4 mg Q4H PRN IVP Nausea & Vomiting 09/05/19 17:00 10/05/19 16:59 Polyethylene Glycol (Miralax) 17 gm DAILY PRN ORAL Constipation 09/05/19 17:00 10/05/19 16:59 Tramadol HCl (Ultram) 50 mg Q4H PRN ORAL Mild Pain (Pain Scale 1-3) 09/06/19 12:15 09/13/19 12:14 Samir Escalante MD Sep 07, 2019 13:03
[2019-09-07] MEDS: Relistor 12mg/0.6ml Vial SUBQ SCH (14:00)
--- NOTE | 2019-09-07 14:55 | NUR ---
NURSE NOTES: All home medications reviewed with Dr. Boris MD gave order to continue all home medications. MD ordered to discharge patient.
--- NOTE | 2019-09-07 15:00 | NUR ---
*-* INSURANCE *-* ALL AVAILABLE CLINICALS HAVE BEEN FAXED TO: [employer]#[id number] CM: ALBER #[phone] EXT [phone] FAX# [phone] REVIEWS/CLINICALS
--- NOTE | 2019-09-07 15:09 | NUR ---
NURSE NOTES: Patient discharged without distress at 1450. IV removed intact, medical ID band removed. Discharge instructions reviewed with patient, patient verbalized understanding of discharge education. Patient's medications returned to patient, patient has all belongings. Escorted off unit to private vehicle.
--- NOTE | 2019-09-07 17:30 | Discharge Summary ---
DATE OF ADMISSION: 09/05/2019 DATE OF DISCHARGE: 09/07/2019 ADMISSION DIAGNOSES: 1. Postop pain. 2. Uterine fibroids, status post uterine fibroid embolization 08/25/[address] Velasquez at [facility]. 3. Postoperative UTI. 4. Constipation. 5. Anemia. DISCHARGE DIAGNOSES: 1. Postop pain, resolved. 2. Uterine fibroids, status post uterine fibroid embolization 08/25/[address] Velasquez at [facility]. 3. Postoperative urinary tract infection, resolved. 4. Constipation, resolved. 5. Anemia. HISTORY OF PRESENT ILLNESS: The patient is a 39-year-old female with a history of uterine fibroids, status post uterine fibroid embolization 08/25/[address] Velasquez who presented with intractable postoperative pain. HOSPITAL COURSE: The patient was admitted to the hospital. Her pain was controlled initially with IV medications and transitioned to orals. She was placed on a bowel regimen with resolution of her constipation. On the day of discharge, she was doing well without any complaints. She was afebrile. Her vital signs were stable and her exam was benign. PROCEDURES: None. CONSULTATIONS: 1. Logan Velasquez M.D., Obstetrics and Gynecology. 2. Alexander Willett M.D., Gastroenterology. DISCHARGE MEDICATION LIST: Per EMR. DISCHARGE FOLLOWUP: With Dr. Velasquez on Wednesday. POST DISCHARGE STUDIES: None. Discharge return precautions given to the patient who verbalized understanding. Samir Escalante M.D. DR: LISA JOB#: [id number] CC:
--- NOTE | 2019-09-07 17:37 | General Surgery Progress Note ---
General Surgery-Progress Note Subjective Procedure Performed uterine artery embolization Symptoms: improved, tolerating diet, voiding well, BM Objective Last 24 Hour Vital Signs Date Time Temp Pulse Resp B/P (MAP) Pulse Ox O2 Delivery O2 Flow Rate FiO2 09/07/19 12:00 98.5 92 18 116/59 (78) 98 09/07/19 09:00 Room Air 09/07/19 08:00 98.9 79 18 109/71 (84) 98 09/07/19 04:00 98.8 71 20 107/68 (81) 98 71 09/07/19 00:00 98.7 63 21 103/42 (62) 98 63 09/06/19 21:00 Room Air 09/06/19 20:00 100.1 81 21 109/61 (77) 98 I&O Intake and Output 09/06/19 09/07/19 19:00 07:00 Intake Total 1865 ml 810 ml Output Total 2300 ml Balance -435 ml 810 ml Intake Oral 850 ml IV Total 1015 ml 810 ml Output Urine Total 2300 ml # Voids 5 # Bowel Movements 2 4 Dressing: dry Wound: clean Drains: none Cardiovascular: RSR Respiratory: clear Abdomen: soft, flat, scaphoid Extremities: no edema, no tenderness, no cyanosis Laboratory Tests Test 09/07/19 08:30 White Blood Count 8.3 K/UL (4.8-10.8) Red Blood Count 4.02 M/UL (4.20-5.40) L Hemoglobin 10.3 G/DL (12.0-16.0) L Hematocrit 31.5 % (37.0-47.0) L Mean Corpuscular Volume 78 FL (80-99) L Mean Corpuscular Hemoglobin 25.7 PG (27.0-31.0) L Mean Corpuscular Hemoglobin Concent 32.7 G/DL (32.0-36.0) Red Cell Distribution Width 13.8 % (11.6-14.8) Platelet Count 301 K/UL (150-450) Mean Platelet Volume 6.9 FL (6.5-10.1) Neutrophils (%) (Auto) 71.6 % (45.0-75.0) Lymphocytes (%) (Auto) 19.8 % (20.0-45.0) L Monocytes (%) (Auto) 5.9 % (1.0-10.0) Eosinophils (%) (Auto) 2.1 % (0.0-3.0) Basophils (%) (Auto) 0.6 % (0.0-2.0) Sodium Level 144 MMOL/L (136-145) Potassium Level 3.5 MMOL/L (3.5-5.1) Chloride Level 105 MMOL/L (98-107) Carbon Dioxide Level 29 MMOL/L (21-32) Anion Gap 10 mmol/L (5-15) Blood Urea Nitrogen 6 mg/dL (7-18) L Creatinine 0.7 MG/DL (0.55-1.30) Estimat Glomerular Filtration Rate > 60 mL/min (>60) Glucose Level 131 MG/DL (74-106) H Calcium Level 9.1 MG/DL (8.5-10.1) Total Bilirubin 0.2 MG/DL (0.2-1.0) Aspartate Amino Transf (AST/SGOT) 12 U/L (15-37) L Alanine Aminotransferase (ALT/SGPT) 15 U/L (12-78) Alkaline Phosphatase 81 U/L (46-116) Total Protein 7.0 G/DL (6.4-8.2) Albumin 3.1 G/DL (3.4-5.0) L Globulin 3.9 g/dL Albumin/Globulin Ratio 0.8 (1.0-2.7) L Plan Additional Comments improved, pain controlled, ok to discharge. FU one week Logan Velasquez MD Sep 07, 2019 17:37
--- NOTE | 2019-09-11 13:38 | NUR ---
*-* INSURANCE *-* DISCHARGE SUMMARY HAS BEEN FAXED TO: [facility]#[id number] CM: ALBER #[phone] EXT [phone] FAX# [phone] REVIEWS/CLINICALS
== END 2019-09-07 14:42 | disposition home or self-care (01) | DRG 861 ==
LOC: EDBEDREQ 13:33 → EMR 14:58 → 3E 15:32 → EDBEDREQ 15:33
DX: G89.18 Other acute postprocedural pain (principal); K59.00 Constipation, unspecified; N39.0 Urinary tract infection, site not specified; D64.9 Anemia, unspecified; R10.32 Left lower quadrant pain
CPT/HCPCS: 36415; 74018; 80053; 81003; 83690; 84702; 85025; 87086; 93970; 96361; 96374; 96375; 99285; J2405; J7030